=== PATIENT | female | born 1995 | race American Indian/Alaskan Native ===

== ENCOUNTER 2017-11-10 13:53 | Emergency (ER) | payer OTHER ==
[2017-11-10] MEDS ORDERED: Sodium Chloride 0.9% 1,000 ML IV STA (16:08)
[2017-11-10] MEDS ORDERED: Magnesium Sulfate 1 gm in D5W 1 GM/100 ML BAG IVPB ONE (16:08)
[2017-11-10] MEDS ORDERED: Apap-Butalbital-Caffeine 325-50-40mg Tab PO ONE (16:09)
--- NOTE | 2017-11-10 16:11 | ED PDOC ---
Arrival/HPI - General Chief Complaint: Headache Time Seen by Provider: 11/10/17 15:58 Historian: Patient - History of Present Illness Narrative History of Present Illness (Text): 11/10/17 16:10 pt p/w + headaches, diffuse x 4 days, pt states initially tolerable and thought it would have been gone by now, but has not improved; OTC medications are not working/helping; pt states pain is diffuse around her head, at most pain is severe at 10/10; pt states pain wax and wanes; pt states mild nausea, no vomiting, + light sensitive, no fever/chills/sweats, no cp/sob/palpitations, no neck pain, no abd pain, no numbness/tingling, no urinary/bowel changes, no fall/ trauma/sick contact, no travel + 1 month ago recovered from URI like symptoms (is improved currently) pt denied LOC pt denied other complaints pt is here for further eval. 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 pt is right hand dominate family hx: no hx of migraines/headaches LMP: 1 week ago Time/Duration: < week (4 days) Symptom Onset: Sudden Symptom Course: Unchanged Quality: Tightness, Cramping Severity Level: 10, Severe Activities at Onset: Rest Context: Home Past Medical History - Provider Review Nursing Documentation Reviewed: Yes - Travel History Have you recently traveled outside [place] w/in the past 3 mons?: No - Past History Past History: No Previous - Infectious Disease Hx of Infectious Diseases: None - Reproductive Menopause: No Currently : Unknown - Past Medical History Past Medical History: No Previous - Psychiatric Hx Substance Use: Yes - Anesthesia Hx Anesthesia: No Family/Social History - Physician Review Nursing Documentation Reviewed: Yes Family/Social History: No Known Family HX Smoking Status: Current Some Days Smoker Hx Alcohol Use: Yes Frequency of alcohol use: Socially Hx Substance Use: Yes Substance used: mrijuana Allergies/Home Meds Allergies/Adverse Reactions: Allergies No Known Allergies Allergy (Verified 11/10/17 15:26) Review of Systems - Review of Systems Constitutional: Normal Eyes: Normal ENT: Normal Respiratory: Normal Cardiovascular: Normal Gastrointestinal: Nausea. absent: Abdominal Pain, Vomiting Genitourinary Female: Normal Musculoskeletal: Normal Skin: Normal Neurological: Headache Endocrine: Normal Hemo/Lymphatic: Normal Psychiatric: Normal Physical Exam Vital Signs Reviewed: Yes Vital Signs Temp Pulse Resp BP Pulse Ox 11/10/17 15:22 99.7 F H 82 16 111/84 99 Temperature: Afebrile Blood Pressure: Normal Pulse: Regular Respiratory Rate: Normal Appearance: Positive for: Well-Appearing, Non-Toxic, Uncomfortable, Other ( resting in bed, alert/awake, GCS = 15, oriented x 3, cooperative, NAD, uncomfortable, follows command with ease) Pain Distress: None Mental Status: Positive for: Alert and Oriented X 3 - Systems Exam Head: Present: Atraumatic, Normocephalic Pupils: Present: PERRL, Other (slight light sensitive; fundoscopic exam: WNL, no acute papilledema noted b/l; no nystagmus, no photophobia, sclera anicteric) Extroacular Muscles: Present: EOMI Conjunctiva: Present: Normal Ears: Present: Normal Mouth: Present: Moist Mucous Membranes, Normal Teeth, Other (no drooling/stridor , no exudate/lesions, uvula/tongue are midline) Pharnyx: Present: Normal Nose (External): Present: Atraumatic Nose (Internal): Present: Normal Inspection Neck: Present: Normal Range of Motion, Trachea Midline, Other (intact ROM, no meningeal signs, no midline tenderness, no nuchal rigidity; no step off). No: Meningeal Signs, MIDLINE TENDERNESS Respiratory/Chest: Present: Clear to Auscultation, Good Air Exchange, Other ( CTA b/l, no w/r/r, no tachypenia). No: Respiratory Distress, Accessory Muscle Use Cardiovascular: Present: Regular Rate and Rhythm, Normal S1, S2. No: Murmurs Abdomen: Present: Normal Bowel Sounds, Other (well nourished male, no focal tenderness, no masses/rebound/guarding/rigidity, no leonardo's sign, no mcburney' s point tenderness) Back: Present: Normal Inspection. No: CVA Tenderness, Midline Tenderness Upper Extremity: Present: Normal Inspection, Normal ROM, NORMAL PULSES, Neurovascularly Intact, Capillary Refill < 2s. No: Deformity Lower Extremity: Present: Normal Inspection, NORMAL PULSES, Normal ROM, Neurovascularly Intact, Capillary Refill < 2 s, Other (+ ambulatory). No: Deformity Neurological: Present: GCS=15, CN II-XII Intact, Speech Normal, Other (NIH stroke scale ~ 0) Skin: Present: Warm, Normal Color, Other (cap refill < 1sec, no ulcerations, no petechiae, no rashes) Psychiatric: Present: Alert, Oriented x 3 Medical Decision Making ED Course and Treatment: 11/10/17 16:10 Impression: atypical headache, no trauma i have consider all the differential diagnosis regarding pt's chief medical complaints/clinical findings, including but are not limited to: atypical headache A/P: atypical headache, no trauma - labs - iv - ct - supportive care - observe/reevaluation 11/10/17 17:50 pt felt much improved, pt states no more headaches currently pt is awaiting for the rest of her medical results pt is smiling and happy currently 11/10/17 18:00 pt remained comfortable pt is made aware of her medical results pt is encouraged fluid hydration pt is encouraged smoking cessation and avoid alcohol if she drinks pt will f/u as directed pt will be discharged home Re-evaluation Time: 17:45 Reassessment Condition: Improved - Lab Interpretations Lab Results: 11/10/17 16:50 11/10/17 16:50 Lab Results 11/10/17 16:50: Sodium 138, Potassium 3.8, Chloride 101, Carbon Dioxide 26, Anion Gap 14, BUN 7, Creatinine 0.8, Est GFR ( Amer) > 60, Est GFR (Non- Af Amer) > 60, Random Glucose 81, Calcium 9.3, Magnesium 1.9, Total Bilirubin 0.4, AST 42 H, ALT 27, Alkaline Phosphatase 63, Total Protein 6.9, Albumin 4.1, Globulin 2.7, Albumin/Globulin Ratio 1.5 11/10/17 16:50: WBC 4.5, RBC 4.17, Hgb 13.7, Hct 38.2, MCV 91.6, MCH 32.9, MCHC 35.9, RDW 12.4, Plt Count 129, MPV 10.5, Gran % 49.0 L, Lymph % (Auto) 39.3 H, [place] % (Auto) 11.5 H, Eos % (Auto) 0.0 L, Baso % (Auto) 0.2, Gran # 2.22, Lymph # (Auto) 1.8, [place] # (Auto) 0.5, Eos # (Auto) 0.0, Baso # (Auto) 0.01 I have reviewed the lab results: Yes Interpretation: All labs normal - RAD Interpretation Narrative RAD Interpretations (Text): Report Date : 11/10/2017 16:37:12 PROCEDURE: CT HEAD WITHOUT CONTRAST. Dictator : Stefani Dinh MD IMPRESSION: No acute intracranial abnormality. Radiology Orders: 11/10/17 16:07 HEAD W/O CONTRAST [CT] Stat Patient Observer: Radiologist - Medication Orders Current Medication Orders: Discontinued Medications Acetaminophen/Butalbital/Caffeine (Fioricet) 1 tab PO ONCE ONE Stop: 11/10/17 16:10 Last Admin: 11/10/17 16:58 Dose: 1 tab MAR Pain Assessment Document 11/10/17 16:58 LEGAL RECOVERY SPECIALIST (Rec: 11/10/17 16:59 LEGAL RECOVERY SPECIALIST [id number]) Pain Reassessment Is this a pain reassessment? No Sleep Is patient sleeping during reassessment? No Presence of Pain Presence of Pain Yes Magnesium Sulfate/Dextrose (Magnesium Sulfate 1 Gm/100 Ml D5w) 1 gm in 100 mls @ 100 mls/hr IVPB ONCE ONE Stop: 11/10/17 17:07 Last Admin: 11/10/17 16:59 Dose: 100 mls/hr eMAR Start Stop Document 11/10/17 16:59 LEGAL RECOVERY SPECIALIST (Rec: 11/10/17 16:59 LEGAL RECOVERY SPECIALIST [id number]) Intravenous Solution Start Date 11/10/17 Start Time 16:59 End Date 11/10/17 End time 17:59 Total Infusion Time 60 Sodium Chloride (Sodium Chloride 0.9%) 1,000 mls @ 999 mls/hr IV .Q1H1M STA Stop: 11/10/17 17:08 Last Admin: 11/10/17 16:56 Dose: 999 mls/hr eMAR Start Stop Document 11/10/17 16:56 LEGAL RECOVERY SPECIALIST (Rec: 11/10/17 16:57 LEGAL RECOVERY SPECIALIST [id number]) Intravenous Solution Start Date 11/10/17 Start Time 16:57 End Date 11/10/17 End time 17:57 Total Infusion Time 60 Ketorolac Tromethamine (Toradol) 30 mg IVP STAT STA Stop: 11/10/17 16:09 Last Admin: 11/10/17 16:57 Dose: 30 mg MAR Pain Assessment Document 11/10/17 16:57 LEGAL RECOVERY SPECIALIST (Rec: 11/10/17 16:58 LEGAL RECOVERY SPECIALIST [id number]) Pain Reassessment Is this a pain reassessment? No Sleep Is patient sleeping during reassessment? No Presence of Pain Presence of Pain Yes IVP Administration Document 11/10/17 16:57 [facility] (Rec: 11/10/17 16:58 [facility] [id number]) Charges for Administration # of IVP Administrations 1 Metoclopramide HCl (Reglan) 10 mg IVP STAT STA Stop: 11/10/17 16:10 Last Admin: 11/10/17 16:57 Dose: 10 mg IVP Administration Document 11/10/17 16:57 [facility] (Rec: 11/10/17 16:57 [facility] [id number]) Charges for Administration # of IVP Administrations 1 Disposition/Present on Arrival - Present on Arrival Any Indicators Present on Arrival: No History of DVT/PE: No History of Uncontrolled Diabetes: No Urinary Catheter: No History of Decub. Ulcer: No History Surgical Site Infection Following: None - Disposition Have Diagnosis and Disposition been Completed?: Yes Diagnosis: Headache Disposition: HOME/ ROUTINE Disposition Time: 17:52 Patient Plan: Discharge Condition: STABLE Discharge Instructions (ExitCare): Headache, Adult Print Language: AZERI Additional Instructions: Make sure to see your doctor in 1-2 days DRINK PLENTY OF FLUIDS take your medications as prescribed DONT SMOKE DONT drink if you drink alcohol RETURN TO ED IF worse pain, cant breath, persistent vomiting, high fever >101- 102 for hours, altered behavior, slurr speech, facial changes, focal weakness ( arm/leg or both), unable to urinate, heavy/persistent bleeding, passing out, chest pain, or other medical emergencies Prescriptions: Ibuprofen [Motrin] 400 mg PO QID PRN #30 tab PRN Reason: Pain, Mild (1-3) Metoclopramide [Reglan] 10 mg PO TID PRN #15 tab PRN Reason: Nausea/Vomiting Referrals: Ken Donald [Primary Care Provider] - Follow up with primary Carmelo Arnett MD [Staff Provider] - Follow up with primary Forms: [employer] (Yi), WORK NOTE
--- NOTE | 2017-11-10 16:38 | CT ---
PROCEDURE: CT HEAD WITHOUT CONTRAST. HISTORY: headache x 4 days, no trauma COMPARISON: None available. TECHNIQUE: Axial computed tomography images were obtained through the head/brain without intravenous contrast. Radiation dose: Total exam DLP = 903.34 mGy-cm. This CT exam was performed using one or more of the following dose reduction techniques: Automated exposure control, adjustment of the mA and/or kV according to patient size, and/or use of iterative reconstruction technique. FINDINGS: HEMORRHAGE: No intracranial hemorrhage. BRAIN: Lester-white matter differentiation is preserved. There is no mass, mass effect or abnormal extra-axial fluid collection. There is no territorial infarction. VENTRICLES: The ventricles are normal in size, shape and configuration. CALVARIUM: The skull base and calvarium are normal. PARANASAL SINUSES: Predominantly clear. MASTOID AIR CELLS: Predominantly clear. OTHER FINDINGS: None. IMPRESSION: No acute intracranial abnormality.
[2017-11-10 17:06] LABS: BASO # 0.01 K/mm3 (0.0-2.0); BASO % 0.2 % (0.0-3.0); GRAN # 2.22 (1.4-6.5); HEMOGLOBIN 13.7 g/dL (12.0-16.0); LYMPH # 1.8 (1.2-3.4); LYMPH % 39.3 % (22.0-35.0); MEAN CELL VOLUME 91.6 fl (80.0-105.0); MEAN CORPUSCULAR HEMOGLOBIN 32.9 pg (25.0-35.0); MEAN CORPUSCULAR HGB CONC 35.9 g/dl (31.0-37.0); MEAN PLATELET VOLUME 10.5 fl (7.0-11.0); MONO # 0.5 (0.1-0.6); MONO % 11.5 % (1.0-6.0); RBC 4.17 10^6/uL (3.5-6.1); RED CELL DISTRIBUTION WIDTH 12.4 % (11.5-14.5); WHITE BLOOD COUNT 4.5 10^3/ul (4.5-11.0)
[2017-11-10 17:11] LABS: ALB/GLOB RATIO 1.5 (1.1-1.8); ALBUMIN 4.1 g/dL (3.0-4.8); ALT/SGPT 27 U/L (7-56); AST/SGOT 42 U/L (14-36); BLOOD UREA NITROGEN 7 mg/dL (7-21); CALCIUM 9.3 mg/dL (8.4-10.5); GFR AFRICAN-AMERICAN > 60; GFR NON-AFRICAN AMERICAN > 60
[2017-11-10 18:01] VITALS: BP 91/70; PULSE 78; RESP 18; TEMP 98.5; O2SAT 98
[2017-11-11 04:43] LABS: URINE BILIRUBIN NEGATIVE (NEGATIVE); URINE BLOOD NEGATIVE (NEGATIVE); URINE GLUCOSE (UA) NEGATIVE (NEGATIVE); URINE LEUKOCYTE ESTERASE NEGATIVE Leu/uL (NEGATIVE); URINE PROTEIN NEGATIVE mg/dL (<30 mg/dL); URINE UROBILINOGEN 0.2 E.U./dL (<1 E.U./dL)
[2017-11-11 04:44] LABS: URINE COLOR YELLOW (YELLOW)
[2017-11-11 04:45] LABS: URINE APPEARANCE CLEAR (CLEAR)
== END 2017-11-10 18:21 | disposition home or self-care (01) ==
LOC: ED 13:53
DX: R51 Headache (principal); F17.200 Nicotine dependence, unspecified, uncomplicated
CPT/HCPCS: 70450; 80053; 81003; 83735; 85025; 96365; 96375; 99285; J1885; J2765; J3475; J7040

== ENCOUNTER 2017-12-31 09:48 | Emergency (ER) | payer OTHER ==
[2017-12-31 10:29] VITALS: BP 113/88; PULSE 80; RESP 18; TEMP 98.8; O2SAT 99
[2017-12-31] MEDS ORDERED: Tmp-Smz 800 mg-160 mg DS Tab PO STA (10:55)
--- NOTE | 2017-12-31 10:58 | ED PDOC ---
Arrival/HPI - General Chief Complaint: Abnormal Skin Integrity Time Seen by Provider: 12/31/17 10:55 Historian: Patient - History of Present Illness Narrative History of Present Illness (Text): 12/31/17 10:56 This 22 yo female whoe denies pmh, presents to this ED c/o genital abscess x 7 days. Patient stated she has been applying warmth compress. Patient stated pain has been progressively worsen. Patient denies other somatic complains. Time/Duration: 1 week Quality: Aching Context: Home Past Medical History - Provider Review Nursing Documentation Reviewed: Yes - Past History Past History: No Previous - Infectious Disease Hx of Infectious Diseases: None - Past Medical History Past Medical History: No Previous - Pulmonary Hx Asthma: Yes - Psychiatric Hx Substance Use: Yes - Anesthesia Hx Anesthesia: No Family/Social History - Physician Review Nursing Documentation Reviewed: Yes Family/Social History: Other (noncontributory) Smoking Status: Current Some Days Smoker Hx Alcohol Use: Yes Frequency of alcohol use: Socially Hx Substance Use: Yes Substance used: mrijuana Allergies/Home Meds Allergies/Adverse Reactions: Allergies No Known Allergies Allergy (Verified 12/31/17 10:29) Review of Systems - Review of Systems Constitutional: Normal. absent: Fatigue, Weight Change, Fevers Eyes: Normal ENT: Normal Respiratory: Normal Cardiovascular: Normal Gastrointestinal: Normal Genitourinary Female: Normal Musculoskeletal: Normal Skin: Abscess Neurological: Normal Endocrine: Normal Hemo/Lymphatic: Normal Psychiatric: Normal Physical Exam Vital Signs Temp Pulse Resp BP Pulse Ox 12/31/17 11:30 98.8 F 80 18 113/88 99 12/31/17 10:27 98.8 F 80 18 113/88 99 Temperature: Afebrile Blood Pressure: Normal Pulse: Regular Respiratory Rate: Normal Appearance: Positive for: Well-Appearing, Non-Toxic, Comfortable Pain Distress: None Mental Status: Positive for: Alert and Oriented X 3 - Systems Exam Head: Present: Atraumatic, Normocephalic Pupils: Present: PERRL Extroacular Muscles: Present: EOMI Conjunctiva: Present: Normal Mouth: Present: Moist Mucous Membranes Neck: Present: Normal Range of Motion Upper Extremity: Present: Normal Inspection, Normal ROM, NORMAL PULSES. No: Edema Lower Extremity: Present: Normal Inspection, Normal ROM, Capillary Refill < 2 s. No: Edema, CALF TENDERNESS Neurological: Present: GCS=15, CN II-XII Intact, Speech Normal Skin: Present: Warm, Dry, Normal Color, Abscess (Right pubis abscess, fluctuance approx 2 cm. No cellulitis). No: Rashes Psychiatric: Present: Alert, Oriented x 3, Normal Insight, Normal Concentration Medical Decision Making ED Course and Treatment: 12/31/17 11:18 Patient came c/o pubic abscess x 7 days, which it has been progressive worsen. I examine patient with fit model Jono Babin (smita). I explained that abscess needs I&D. I told patient that since abscess is located near her genital, I&D will be painful, and Lidocaine with Epi local anesthetic will be used. She stated she is familiar with the procedure, and she understands it is painful, since she had similar abscess, and I&D in the past for a buttock abscess. Patient agreed with the plan for I&D. The abscess area was prep with alcohol, and Betadine. I warned patient that I was going to "pinch" the abscess area with a needle with local anesthetic. As I am inserting needle, patient got up, grabbed my left arm and trying to twist it. This caused my right hand with the needle to move. I have never seen a patient reactive this way after a local anesthetic injection in my years of performing an I&D. I told patient not to move, because I was afraid of puncturing myself with the needle. Patient became very angry with me, telling me that I did not give her enough warning. She became very angry, yelling, and using profanity. I told patient I did not feel comfortable to continue with procedure, and that I was going to tell ED attending to come and see her. Dr. Smiley ED attending spoke with patient. He recommended ABX and surgery out patient f/u. Patient was recommended to call surgeon to set up an appointment in 1-2 days. To return to near ED if symptoms worsen. Patient understood plan. Reassessment Condition: Re-examined, Unchanged - Medication Orders Current Medication Orders: Discontinued Medications Ibuprofen (Motrin Tab) 600 mg PO STAT STA Stop: 12/31/17 10:56 Trimethoprim/Sulfamethoxazole (Bactrim Ds Tab) 1 tab PO STAT STA PRN Reason: Protocol Stop: 12/31/17 10:56 Disposition/Present on Arrival - Present on Arrival Any Indicators Present on Arrival: No History of DVT/PE: No History of Uncontrolled Diabetes: No Urinary Catheter: No History of Decub. Ulcer: No History Surgical Site Infection Following: None - Disposition Have Diagnosis and Disposition been Completed?: Yes Diagnosis: Abscess Disposition: HOME/ ROUTINE Disposition Time: 11:39 Patient Plan: Discharge Condition: GOOD Discharge Instructions (ExitCare): Boil (DC) Additional Instructions: Call Dr. Castellanos Office to set up appointment in 1-2 days. Take antibiotic as instructed, and continue with warm compress. Return to emergency if symptoms worsen or fever Prescriptions: Sulfamethoxazole/Trimethoprim [Bactrim DS 800 mg-160 mg] 1 tab PO BID #20 tab Referrals: Ken Donald [Primary Care Provider] - Follow up with primary Hiro Castellanos MD [Staff Provider] - Follow up with primary Forms: [employer] (Maori)
== END 2017-12-31 11:30 | disposition home or self-care (01) ==
LOC: ED 09:48
DX: N76.4 Abscess of vulva (principal)